=== PATIENT | female | born 1975 | race Caucasian/White ===

== ENCOUNTER 2019-06-27 12:21 | Emergency (ER) | payer OTHER | END 2019-06-27 13:29 | disposition home or self-care (01) | LOC: ERS 12:21 | DX: J06.9 Acute upper respiratory infection, unspecified (principal); F17.210 Nicotine dependence, cigarettes, uncomplicated; F41.9 Anxiety disorder, unspecified | CPT/HCPCS: 87081; 87430; 87804; 99283; U0001 ==

== ENCOUNTER 2022-07-22 13:27 | Outpatient (CLI) | payer OTHER | END 2022-07-22 13:28 | disposition home or self-care (01) | LOC: BICMRI 13:27 | PROVIDERS: ATTEND Obstetrics & Gynecology | DX: R59.0 Localized enlarged lymph nodes (principal); J34.89 Other specified disorders of nose and nasal sinuses; Z90.12 Acquired absence of left breast and nipple | CPT/HCPCS: A9577; C8908 ==

== ENCOUNTER → 2022-07-31 | Day surgery (SDC) | payer OTHER | END | disposition home or self-care (01) | LOC: BICULT 12:22 | PROVIDERS: ATTEND Obstetrics & Gynecology | PROC: 0J9F3ZX Drainage of Left Upper Arm Subcutaneous Tissue and Fascia, Percutaneous Approach, Diagnostic (ICD-10-PCS; principal; 2022-07-31) | DX: R22.32 Localized swelling, mass and lump, left upper limb (principal) | CPT/HCPCS: 38505; 88184; 88300 ==